=== PATIENT | female | born 1975 | race Two or more races ===

== ENCOUNTER 2019-05-28 15:08 | Emergency (ER) | payer SELFPAY ==
[~2019-05-28] VITALS: Ht 165.1 cm; Wt 59.5 kg
[2019-05-28 15:33] VITALS: BP 117/81
[2019-05-28] MEDS ORDERED: DEXAMETHASONE 4 MG TABLET PO ONE (16:00)
[2019-05-28] MEDS ORDERED: KETOROLAC 30 MG/1 ML IM ONE (16:00)
[2019-05-28] MEDS ORDERED: HYDROcodone/APAP 5/325 TABLET PO ONE (16:00)
[2019-05-28] MEDS ORDERED: DEXAMETHASONE 4 MG TABLET ONE (16:16)
[2019-05-28] MEDS ORDERED: KETOROLAC 30 MG/1 ML ONE (16:16)
[2019-05-28] MEDS ORDERED: HYDROcodone/APAP 5/325 TABLET ONE (16:16)
== END 2019-05-28 16:31 | disposition home or self-care (01) ==
LOC: ED 16:20
DX: M75.31 Calcific tendinitis of right shoulder (principal)
CPT/HCPCS: 73030; 96372; 99283; J1885